=== PATIENT | male | born 1955 | race Caucasian/White ===

== ENCOUNTER 2022-10-12 14:38 | Emergency (ER) | payer MEDICARE, OTHER ==
[~2022-10-12 14:38] MED LIST: HUM PROTHROMBIN CPLX(PCC) 1,000 UNITS VIAL ONE
[2022-10-12 14:59] LABS: #Basophils 0.1 thou/uL (0.0-0.2); #Lymphocytes 3.3 thou/uL (1.20-3.40); #Monocytes 1.4 thou/uL (0.11-0.59); #Neutrophils 5.5 thou/uL (1.40-6.50); %Basophils 1.1 % (0.0-1.0); %Eosinophils 0.2 % (0.0-10.0); %Lymphocytes 32.2 % (21.0-51.0); %Monocytes 13.1 % (0.0-10.0); %Neutrophils 53.3 % (42.0-75.0); Hemoglobin 4.9 g/dL (14.0-18.0); Mean Corpuscular HGB CONC 31.5 g/dL (32.0-36.0); Mean Corpuscular Hemoglobin 26.6 pg (27.0-31.0); Mean Corpuscular Volume 84.6 fl (78.0-98.0); Mean Platelet Volume 8.4 fL (7.4-10.4); Platelet Count 109 10x3/uL (130-400); RBC Distribution Width 22.6 % (11.5-14.5); Red Blood Cell (RBC) Count 1.84 mill/uL (4.70-6.10); White Blood Cell (WBC) Count 10.3 10x3/uL (4.8-10.8)
[2022-10-12 15:04] LABS: INR-International Normal Ratio 1.5; Prothrombin Time 18.3 sec (12.0-14.7)
[2022-10-12] MEDS ORDERED: Pantoprazole 40 MG VIAL ONE (15:04)
[2022-10-12] MEDS ORDERED: Ondansetron PF 4 MG/2 ML Vial ONE (15:04)
[2022-10-12 15:12] LABS: ALT (SGPT) 43 U/L (8-55); AST (SGOT) 32 U/L (5-34); Alkaline Phosphatase 35 U/L (40-110); Anion Gap 18 mmol/L (10-20); BUN (Urea Nitrogen) 44 mg/dL (8.4-25.7); Bilirubin, Total 0.6 mg/dL (0.2-1.2); Calc. Creatinine Clearance 0 mL/min (70-130); Calcium 7.5 mg/dL (7.8-10.44); Carbon Dioxide 14 mmol/L (23-31); Chloride 108 mmol/L (98-107); Estimated GFR 67; Globulin 1.9 g/dL (2.4-3.5); Glucose 313 mg/dL (80-115); Potassium 3.6 mmol/L (3.5-5.1); Protein, Total 4.9 g/dL (5.8-8.1); Sodium 136 mmol/L (136-145)
[2022-10-12] MEDS ORDERED: Octreotide Acetate 100 MCG/ML VIAL ONE (15:21)
[2022-10-12] MEDS ORDERED: Human Prothrombin Complx(PCC) 500 UNITS VIAL ONE (15:22)
[2022-10-12] MEDS ORDERED: Lidocaine 2% PF 100 mg/5 ml Syringe ONE (15:27)
[2022-10-12] MEDS ORDERED: Sodium Chloride 0.9% 100 ML ONE ×2 (15:52→16:16)
[2022-10-12] MEDS ORDERED: cefTRIAXone (ROCEPHIN) 2 GM VIAL ONE (16:15)
== END 2022-10-12 16:48 | disposition short-term general hospital (02) ==
LOC: NAV ERS 14:38
DX: K92.2 Gastrointestinal hemorrhage, unspecified (principal); I95.9 Hypotension, unspecified; E11.9 Type 2 diabetes mellitus without complications; I25.10 Atherosclerotic heart disease of native coronary artery without angina pectoris; Z79.4 Long term (current) use of insulin; Z79.01 Long term (current) use of anticoagulants; Z79.82 Long term (current) use of aspirin
CPT/HCPCS: 36430; 51702; 74176; 80053; 82962; 85025; 85610; 85730; 86850; 86900; 86901; 86920; 93005; 96361; 96365; 96375; 99285; J7168; P9016; 36416; C9113; J0696; J2001; J2354; J2405; J3490